=== PATIENT | female | born 1995 | race Two or more races ===

== ENCOUNTER 2016-07-08 16:02 | Emergency (ER) | payer BC ==
[2016-07-08 16:21] VITALS: BP 123/83; PULSE 78; RESP 14; TEMP 97.9; O2SAT 99
--- NOTE | 2016-07-08 17:13 | UCPHY ---
H & P Patient Type: New Chief Complaint Nursing Narrative: pain and swelling right knee from skiing accident 6 days ago. HPI/ROS: HPI CHIEF COMPLAINT: Right knee pain HISTORY OF PRESENT ILLNESS:This patient is a very pleasant 21-year-old female, denies any significant medical or surgical history presents to the urgent care with right knee pain x6 days. Patient tells me she was skiing on Monday she went off a lory" unclear exactly half far she fell, however she landed on her right knee she immediately had pain. She was able to ski down the rest of the slow. She has had continued pain throughout the week. 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 She tells me the pain is 7/10 dull throbbing ache right knee. Past Medical History: Denies medical history Past Surgical History: Denies surgical Social History: Denies use of drugs alcohol tobacco products Family History: Noncontributory ROS REVIEW OF SYSTEMS: A comprehensive 10 point review of systems is otherwise negative aside from elements mentioned in the history of present illness. Exam Constitutional triage nursing summary reviewed, vital signs reviewed, awake/ alert. Eyes normal conjunctivae and sclera, EOMI, PERRLA. HENT normal inspection, atraumatic, moist mucus membranes, no epistaxis, neck supple/ no meningismus, no raccoon eyes. Respiratory clear to auscultation bilaterally, normal breath sounds, no respiratory distress, no wheezing. Cardiovascular rate normal, regular rhythm, no murmur, no edema, distal pulses normal. Gastrointestinal soft, non-tender, no rebound, no guarding, normal bowel sounds, no distension, no pulsatile mass. Genitourinary no CVA tenderness. Musculoskeletal right knee: Swelling present, joint effusion present, ecchymosis around the patella, tender palpation during the medial and lateral joint line. Full range of motion but has pain, no crepitus, no clicking, no midline vertebral tenderness, full range of motion, no calf swelling, no tenderness of extremities, no meningismus, good pulses, neurovascularly intact. Skin pink, warm, & dry, no rash, skin atraumatic. Neurologic awake, alert and oriented x 3, AAOx3, moves all 4 extremities equally, motor intact, sensory intact, CN II-XII intact, normal cerebellar, normal vision, normal speech. Psychiatric normal mood/affect. Heme/Lymph/Immune no lymphadenopathy. Differential Diagnosis: Includes but is not limited to and in no particular order: Her knee sprain, knee contusion, fracture, patella fracture, patellar dislocation, tibial plateau fracture, meniscal injury, ligamentous injury Medical Decision Making: This patient be placed on crutches, knee immobilizer, [place] for pain control. X-ray will be performed of the knee to evaluate for acute fracture. Re-evaluation: ED x-ray right knee: Shows soft tissue swelling, joint effusion on the proximal medial side of the tibia there appears to be a ?buckle fracture. It is unclear if there is a fracture of the tibial plateau as it does appear slightly unusual. The patient is agree for CT scan of the knee. [place] for pain control. She will be placed in knee immobilizer and crutches. CT scan of the right knee. The results of the study are negative for acute fracture otherwise unremarkable study The study was read by Dr. Bravo. I viewed the images myself on the PACS system. [id number]: Re-evaluation at this time she is resting comfortably did update her results on the CT scan x-ray. She has been placed in knee immobilizer and crutches. She understands ice her knee, take ibuprofen for mild pain [place] for pain and also understands follow-up with Orthopedics on Monday. Source: Patient - Personal History Current Tetanus Diphtheria and Acellular Pertussis (TDAP): Yes Tetanus Vaccine Date: 2009 - Medical/Surgical History Hx Asthma: Yes Hx Chronic Respiratory Disease: No Hx Diabetes: No Hx Cardiac Disease: No Hx Renal Disease: No Hx Cirrhosis: No Hx Alcoholism: No Hx HIV/AIDS: No Hx Splenectomy or Spleen Trauma: No Other PMH: denies - Family History Significant Family History: No pertinent family hx - Social History Smoking Status: Never smoked Constitutional: Initial Vital Signs Temperature (C) 36.6 C 07/08/16 16:17 Heart Rate 78 07/08/16 16:17 Respiratory Rate 14 07/08/16 16:17 Blood Pressure 123/83 H 07/08/16 16:17 O2 Sat (%) 99 07/08/16 16:17 O2 Delivery Mode Room Air Allergies/Adverse Reactions: No Known Allergies Allergy (Unverified 07/08/16 16:16) Home Medications: Medication Instructions Recorded Hydrocodone/APAP 5/325 [[place] 1 - 2 tab PO Q4H PRN #10 tab 07/08/16 5/325] Ibuprofen [Motrin (*)] 800 mg PO Q6-8PRN #10 tab 07/08/16 Departure - Departure Disposition: Home, Routine, Self-Care Clinical Impression: Knee fracture, right Condition: Good Instructions: Knee Sprain (ED), Knee Pain (ED), Arthralgia (ED) Additional Instructions: 1. Please use the crutches to help support the knee. 2.Take ibuprofen for mild pain, severe pain take [place]. This medication can make her sleepy do not drive while taking it 3. Please follow up with Orthopedics. He could still have ligamentous injury or meniscal injury. Referrals: OUT OF STATE,. [Primary Care Provider] - As per Instructions Saeid Elmore MD [Medical Doctor] - As per Instructions Prescriptions: Ibuprofen [Motrin (*)] 800 mg PO Q6-8PRN #10 tab Hydrocodone/APAP 5/325 [[place] 5/325] 1 - 2 tab PO Q4H PRN #10 tab PRN Reason: Pain, Moderate - PQRS PQRS Measurement: n/a
[2016-07-08] MEDS ORDERED: HYDROCODONE/APAP 5/325 TAB PO ONE (17:26)
--- NOTE | 2016-07-08 17:31 | DX ---
Right Knee, 5 Views Indication: Knee pain. Twisting injury. Technique: AP, obliques, lateral, and Merchant views. Comparison: None Findings: The normally mineralized bones are anatomically aligned. No fracture, joint space abnormali ty, or underlying bony lesion. The patella is normally aligned on the Merchant view. A small bony exc rescence oriented away from the metaphysis along the medial metadiaphysis of the proximal tibia is li david a small benign osteochondroma. Small effusion. Impression: Knee effusion. No fracture.
[2016-07-08] MEDS ORDERED: IBUPROFEN 600 MG TAB PO ONE (18:09)
--- NOTE | 2016-07-08 18:14 | CT ---
CT Lower Extremity, Right Knee, Without Contrast History: Knee pain and swelling after a skiing injury. Technique: 0.625-mm helical images were obtained of the knee, without contrast. Multiplanar reforma tion was performed. Radiation dose reduction technique was utilized. Comparison: X-ray performed earlier. Findings: No evidence for an acute fracture. There is a mild to moderate suprapatellar joint effusi on. There are 2 benign exostosis / osteochondromas which are seen posteromedial aspect of the proxim al tibial metaphysis. No other significant osseous abnormality. No significant joint narrowing or p eriarticular erosion. Impression: No evidence for acute fracture. Mild to moderate suprapatellar joint effusion. Results called and discussed with Navin Delarosa M.D., at July 08, 2016 at 1748 hours. E:SORAYA/gus
[2016-07-08] MEDS ORDERED: IBUPROFEN 200 MG TAB PO ONE ×2 (18:25)
== END 2016-07-08 18:30 | disposition home or self-care (01) ==
LOC: CED 16:02
PROC: 2W3LX1Z Immobilization of Right Lower Extremity using Splint (ICD-10-PCS; principal; 2016-07-08)
DX: S89.81XA Other specified injuries of right lower leg, initial encounter (principal); V00.321A Fall from snow-skis, initial encounter; Y93.23 Activity, snow (alpine) (downhill) skiing, snowboarding, sledding, tobogganing and snow tubing; Y92.89 Other specified places as the place of occurrence of the external cause
CPT/HCPCS: 73564-PO; 73700-PO; 99204-PO; G0463-PO; L1830